=== PATIENT | female | born 1960 | race Caucasian/White ===

== ENCOUNTER 2023-03-16 02:54 | Emergency (ER) | payer SELFPAY ==
[~2023-03-16] VITALS: Ht 160 cm; Wt 73.0 kg
[2023-03-16 02:57] VITALS: O2SAT 100
[2023-03-16 03:30] VITALS: BP 154/76; PULSE 88; RESP 18; TEMP 98.2
[2023-03-16] MEDS ORDERED: MAGNESIUM/ALUMINUM HYDROXIDE/SIMETHICONE 30ML UDC PO STA (03:52)
[2023-03-16] MEDS ORDERED: HYDROCODONE/ACETAMINOPHEN 5/325MG TABLET PO STA (03:52)
[2023-03-16] MEDS ORDERED: IBUP-2028 MT (04:31)
== END 2023-03-16 06:28 | disposition home or self-care (01) ==
LOC: ER 03:05
DX: K42.9 Umbilical hernia without obstruction or gangrene (principal); I10 Essential (primary) hypertension; Z98.890 Other specified postprocedural states
CPT/HCPCS: 99283; Z7610

== ENCOUNTER 2024-02-02 21:23 | Emergency (ER) | payer MEDICAID, MEDICARE ==
[~2024-02-02] VITALS: Ht 167.6 cm; Wt 87.0 kg
[~2024-02-02 21:23] MED LIST: IBUP-2028 MT
[2024-02-02 21:28] VITALS: O2SAT 98
[2024-02-02 23:12] LABS: BASOPHILS % 0.8 % (0.0-2.0); DIFFERENTIAL COMMENT 0; EOSINOPHILS % 2.8 % (0.0-5.0); HEMATOCRIT. 38.3 % (36.0-48.0); HEMOGLOBIN. 12.6 g/dL (12.0-16.0); LYMPHOCYTES % 25.5 % (20.0-50.0); MEAN CORPUSCULAR HGB CONC 32.9 g/dL (31.0-37.0); MEAN CORPUSCULAR VOLUME 75.9 fL (81.0-99.0); MEAN PLATELET VOLUME 7.4 fl (7.4-10.4); MONOCYTES % 6.2 % (2.0-8.0); NEUTROPHILS % 64.7 % (40.0-76.0); PLATELET 284 x1000/uL (130-400); RED BLOOD CELL COUNT 5.05 mill/uL (4.2-5.4); RED CELL DISTRIBUTION WIDTH 16.1 % (11.6-14.6); WHITE BLOOD COUNT 7.6 x1000/uL (4.5-11.0)
[2024-02-02 23:20] LABS: CHLORIDE 103 mEq/L (98-107); POTASSIUM 3.7 mEq/L (3.5-5.1); SODIUM 139 mEq/L (136-145)
[2024-02-02 23:21] LABS: CARBON DIOXIDE 28 mEq/L (21-32)
[2024-02-02 23:22] LABS: CALCIUM 10.6 mg/dL (8.7-10.4)
[2024-02-02 23:26] LABS: CREATININE 0.7 mg/dL (0.6-1.0); GLUCOSE 192 mg/dL (70-105); UREA NITROGEN BLOOD 19 mg/dL (9-23)
[2024-02-02 23:27] LABS: TROPONIN I HIGH SENSITIVITY 28 ng/L (3.0-34)
[2024-02-02 23:28] LABS: ACETAMINOPHEN < 2 ug/mL (10-30)
[2024-02-02 23:37] LABS: ETHANOL BLOOD < 10 mg/dL (<10)
[2024-02-03 01:32] VITALS: BP 199/92; PULSE 82; RESP 16; TEMP 98.4
== END 2024-02-03 01:29 | disposition home or self-care (01) ==
LOC: ER 21:23
DX: R53.1 Weakness (principal); J44.9 Chronic obstructive pulmonary disease, unspecified; I10 Essential (primary) hypertension
CPT/HCPCS: 36415; 71045; 80048; 80307; 80320; 80329; 83880; 84484; 85025; 93005; 99285; G0480

== ENCOUNTER 2024-02-08 20:47 | Emergency (ER) | payer MEDICARE ==
[~2024-02-08] VITALS: Ht 165.1 cm; Wt 113.0 kg
[2024-02-08 20:52] VITALS: O2SAT 96
[2024-02-08 23:35] LABS: BASOPHILS % 0.5 % (0.0-2.0); DIFFERENTIAL COMMENT 0; EOSINOPHILS % 0.8 % (0.0-5.0); HEMATOCRIT. 39.7 % (36.0-48.0); LYMPHOCYTES % 11.8 % (20.0-50.0); MEAN CORPUSCULAR HEMOGLOBIN 24.9 pg (28.0-32.0); MEAN CORPUSCULAR HGB CONC 32.7 g/dL (31.0-37.0); MEAN CORPUSCULAR VOLUME 76.3 fL (81.0-99.0); MEAN PLATELET VOLUME 7.3 fl (7.4-10.4); MONOCYTES % 3.8 % (2.0-8.0); NEUTROPHILS % 83.1 % (40.0-76.0); PLATELET 250 x1000/uL (130-400); RED BLOOD CELL COUNT 5.21 mill/uL (4.2-5.4); RED CELL DISTRIBUTION WIDTH 15.8 % (11.6-14.6); WHITE BLOOD COUNT 9.9 x1000/uL (4.5-11.0)
[2024-02-08 23:36] LABS: CHLORIDE 101 mEq/L (98-107); POTASSIUM 3.6 mEq/L (3.5-5.1); SODIUM 135 mEq/L (136-145)
[2024-02-08 23:37] LABS: CALCIUM 9.6 mg/dL (8.7-10.4); CARBON DIOXIDE 28 mEq/L (21-32)
[2024-02-08 23:42] LABS: CREATININE 0.6 mg/dL (0.6-1.0); GLUCOSE 146 mg/dL (70-105); UREA NITROGEN BLOOD 14 mg/dL (9-23)
[2024-02-08 23:43] LABS: TROPONIN I HIGH SENSITIVITY 6 ng/L (3.0-34)
[2024-02-08 23:46] LABS: ETHANOL BLOOD < 10 mg/dL (<10)
[2024-02-08] MEDS ORDERED: NALO4SPR BOTHNSTRLS (23:54)
[2024-02-09 01:20] VITALS: BP 155/86; PULSE 101; RESP 18; TEMP 98.6
== END 2024-02-09 02:21 | disposition home or self-care (01) ==
LOC: ER 20:47
DX: T40.1X1A Poisoning by heroin, accidental (unintentional), initial encounter (principal); F11.90 Opioid use, unspecified, uncomplicated; J44.9 Chronic obstructive pulmonary disease, unspecified; I10 Essential (primary) hypertension; F12.10 Cannabis abuse, uncomplicated; X58.XXXA Exposure to other specified factors, initial encounter
CPT/HCPCS: 80048; 80320; 83880; 85025; 84484; 36415; 71045; 93005; 99285; Z7610 ×2; G0480

== ENCOUNTER 2025-02-17 01:27 | Inpatient (IN) | payer BC, MEDICARE ==
[~2025-02-17] VITALS: Ht 162.6 cm; Wt 93.0 kg
[~2025-02-17 01:27] MED LIST changes: +NALO4SPR BOTHNSTRLS
[2025-02-17] MEDS ORDERED: MORPHINE SULFATE 4 MG/ML INJ (FOR IV/IM USE) IV STA (01:34)
[2025-02-17] MEDS ORDERED: ONDANSETRON HCL 4MG/2ML INJ IV STA (01:34)
[2025-02-17 02:13] LABS: BASOPHILS % 0.9 % (0.0-2.0); EOSINOPHILS % 2.2 % (0.0-5.0); HEMATOCRIT. 40.6 % (36.0-48.0); HEMOGLOBIN. 13.2 g/dL (12.0-16.0); LYMPHOCYTES % 32.3 % (20.0-50.0); MEAN CORPUSCULAR HEMOGLOBIN 26.2 pg (28.0-32.0); MEAN CORPUSCULAR HGB CONC 32.6 g/dL (31.0-37.0); MEAN CORPUSCULAR VOLUME 80.4 fL (81.0-99.0); MEAN PLATELET VOLUME 7.4 fl (7.4-10.4); NEUTROPHILS % 57.6 % (40.0-76.0); PLATELET 192 x1000/uL (130-400); RED BLOOD CELL COUNT 5.05 mill/uL (4.2-5.4); RED CELL DISTRIBUTION WIDTH 14.7 % (11.6-14.6); WHITE BLOOD COUNT 5.8 x1000/uL (4.5-11.0)
[2025-02-17 02:24] LABS: CARBON DIOXIDE 26 mEq/L (21-32); CHLORIDE 106 mEq/L (98-107); POTASSIUM 3.6 mEq/L (3.5-5.1); SODIUM 140 mEq/L (136-145)
[2025-02-17 02:25] LABS: CALCIUM 8.8 mg/dL (8.7-10.4); PROTHROMBIN TIME 10.6 sec (9.6-11.0)
[2025-02-17 02:29] LABS: CREATININE 0.6 mg/dL (0.6-1.0)
[2025-02-17 02:30] LABS: ETHANOL BLOOD < 10 mg/dL (<10); GLUCOSE 131 mg/dL (70-105); UREA NITROGEN BLOOD 14 mg/dL (9-23)
[2025-02-17 02:31] LABS: ALANINE AMINOTRANSFERASE 23 IU/L (10-49)
[2025-02-17 02:32] LABS: ALBUMIN 4.3 g/dL (3.2-4.8); ASPARTATE AMINOTRANSFERASE 20 IU/L (<34); BILIRUBIN DIRECT 0.2 mg/dL (<=3.0); BILIRUBIN TOTAL 0.4 mg/dL (0.1-1.0); PROTEIN TOTAL 7.7 g/dL (6.0-8.3)
[2025-02-17 02:46] LABS: TROPONIN I HIGH SENSITIVITY < 4 ng/L (3.0-34)
[2025-02-17] MEDS: ONDANSETRON HCL 4MG/2ML INJ IV NR (03:17)
[2025-02-17] MEDS: MORPHINE SULFATE 4 MG/ML INJ (FOR IV/IM USE) IV NR (03:17)
[2025-02-17] MEDS: CEFTRIAXONE 2GM/50ML 50 ML IV SCH (05:29)
[2025-02-17 08:08] VITALS: BP 138/58; PULSE 66; RESP 18; TEMP 36.6; O2SAT 100
[2025-02-17 08:38] VITALS: BP 138/58; PULSE 66; RESP 18; TEMP 36.6
[2025-02-17 12:04] VITALS: BP 150/68; PULSE 66; RESP 18; TEMP 36.8; O2SAT 100
[2025-02-17] MEDS ORDERED: KETOROLAC 15MG/ML VIAL IV PRN (12:30)
[2025-02-17] MEDS ORDERED: ONDANSETRON HCL 4MG/2ML INJ IV PRN (12:45)
[2025-02-17 16:10] VITALS: BP 128/78; PULSE 70; RESP 18; TEMP 37; O2SAT 100
[2025-02-17 17:57] LABS: CLARITY URINE CLEAR (CLEAR); COLOR URINE YELLOW (YELLOW); GLUCOSE URINE NEGATIVE (NEGATIVE); KETONES URINE NEGATIVE (NEGATIVE); LEUKOCYTE ESTERASE URINE TRACE (NEGATIVE); NITRITE URINE NEGATIVE (NEGATIVE); OCCULT BLOOD URINE NEGATIVE (NEGATIVE); PH URINE 7.5 (4.5-8.0); PROTEIN URINE NEGATIVE (NEGATIVE); SPECIFIC GRAVITY URINE 1.015 (1.005-1.030)
[2025-02-17 18:15] LABS: *AMPHETAMINES SCREEN URINE PRESUMPTIVE POSITIVE (NEGATIVE)
[2025-02-17 18:16] LABS: *BARBITURATES SCREEN URINE NEGATIVE (NEGATIVE); *BENZODIAZEPINES SCREEN URINE NEGATIVE (NEGATIVE); *COCAINE SCREEN URINE NEGATIVE (NEGATIVE); CANNABINOID URINE SCREEN PRESUMPTIVE POSITIVE (NEGATIVE); ECSTASY MDMA SCREEN URINE NEGATIVE (NEGATIVE); METHADONE URINE SCREEN Pos (NEGATIVE); OPIATES URINE SCREEN PRESUMPTIVE POSITIVE (NEGATIVE); PHENCYCLIDINE URINE SCREEN PRESUMTIVE POSITIVE (NEGATIVE)
[2025-02-17 19:11] LABS: BACTERIA URINE TRACE; RBC URINE NONE SEEN /hpf (0-2); SQUAMOUS EPITHELIAL CELL URINE RARE /lpf (RARE/1+)
[2025-02-17 20:00] VITALS: BP 152/72; PULSE 71; RESP 18; TEMP 36.4; O2SAT 96
[2025-02-17] MEDS: ACETAMINOPHEN 325MG TABLET PO PRN (20:37)
[2025-02-18] VITALS: BP 153/81; PULSE 84; RESP 18; TEMP 36.5; O2SAT 99
[2025-02-18 04:00] VITALS: BP 174/81; PULSE 71; RESP 18; TEMP 36.6; O2SAT 100
[2025-02-18] MEDS: CEFTRIAXONE 1GM/50ML 50 ML IV SCH (05:57)
[2025-02-18 08:00] VITALS: BP 177/87; PULSE 76; RESP 19; TEMP 36.7; O2SAT 99
[2025-02-18] MEDS: CLONIDINE 0.1MG TABLET PO PRN (09:20)
[2025-02-18] MEDS ORDERED: METHADONE HCL 10MG TABLET PO SCH (10:30)
[2025-02-18] MEDS ORDERED: NALOXONE HCL 0.4MG/ML VIAL IV PRN (10:45)
[2025-02-18] MEDS: METHADONE HCL 10MG TABLET PO SCH (11:01)
[2025-02-18 11:58] VITALS: BP 141/71; PULSE 70; RESP 18; TEMP 37.1; O2SAT 100
[2025-02-18 16:00] VITALS: BP 121/63; PULSE 66; RESP 19; TEMP 36.9; O2SAT 96
[2025-02-18] MEDS ORDERED: CEPH500C2 MT (16:05)
[2025-02-18] MEDS ORDERED: AMLO10TA80 MT (16:06)
[2025-02-18 16:41] VITALS: BP 121/63; PULSE 66; TEMP 98.5; O2SAT 96
== END 2025-02-18 17:15 | disposition home or self-care (01) | DRG 254 ==
LOC: ER 01:27 → EDBEDREQ 01:44 → 8WST 04:13 → EDBEDREQ 04:17 → ENRESERV 05:54
PROVIDERS: ADMIT Internal Medicine; ATTEND Internal Medicine
DX: K42.9 Umbilical hernia without obstruction or gangrene (principal); L03.311 Cellulitis of abdominal wall; K74.60 Unspecified cirrhosis of liver; I10 Essential (primary) hypertension; N20.0 Calculus of kidney; F17.210 Nicotine dependence, cigarettes, uncomplicated; I25.10 Atherosclerotic heart disease of native coronary artery without angina pectoris; J44.9 Chronic obstructive pulmonary disease, unspecified
CPT/HCPCS: 36415; 71045; 74176; 80048; 80076; 80305; 80320; 81003; 83880; 84484; 85025; 99285; A4606; J0696; J2270; J2405; G0480